=== PATIENT | female | born 1985 | race Caucasian/White ===

== ENCOUNTER 2017-12-03 00:54 | Inpatient (IN) | payer BC, OTHER ==
[~2017-12-03] VITALS: Ht 165.1 cm; Wt 57.6 kg
[2017-12-03 01:50] VITALS: BP 138/81
--- NOTE | 2017-12-03 01:50 | NUR ---
INTAKE ASSESSMENT BP: 138/81, HR: 112, RR: 16, SpO2: 96%, T:98.0 Pt is in stable condition and is able to be admitted on the unit. Pt is intoxicated from recent Opiate, Benzo and Crack cocaine use. Pt reports she last used 2 hours prior. Unit protocols regarding medications and vitals signs every 4 hours were explained. Pt verbalized understanding. Will continue admission upon arrival on the unit.
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
[2017-12-03 03:20] LABS: *URINE HCG, QUAL NEGATIVE (NEGATIVE)
[2017-12-03 03:23] LABS: *AMPHETAMINE, URINE POSITIVE (NEGATIVE); *BARBITURATE, URINE NEGATIVE (NEGATIVE); *CANNABINOID, URINE POSITIVE (NEGATIVE); *COCCAINE, URINE POSITIVE (NEGATIVE); *OPIATE, URINE POSITIVE (NEGATIVE); *PHENCYCLIDINE SCREEN,URINE NEGATIVE (NEGATIVE)
[2017-12-03] MEDS ORDERED: MIRALAX 17 GM POWD.PACK PO PRN (03:30)
[2017-12-03] MEDS ORDERED: DICYCLOMINE HCL 20 MG TABLET PO PRN (03:30)
[2017-12-03] MEDS ORDERED: ONDANSETRON 4 MG/2 ML VIAL IM PRN (03:30)
[2017-12-03] MEDS ORDERED: diphenhydrAMINE 50 MG CAPSULE PO PRN (03:30)
[2017-12-03] MEDS ORDERED: ACETAMINOPHEN 325 MG TABLET PO PRN (03:30)
[2017-12-03] MEDS ORDERED: THIAMINE HCL 200 MG/2 ML VIAL IM ONE (03:30)
[2017-12-03] MEDS ORDERED: CLONIDINE HCL 0.1 MG TABLET PO PRN (03:30)
[2017-12-03] MEDS ORDERED: HYDROXYZINE PAMOATE 25 MG CAPSULE PO PRN (03:30)
[2017-12-03] MEDS ORDERED: MAGNESIUM HYDROXIDE 30 ML LIQUID UDC PO PRN (03:30)
[2017-12-03] MEDS ORDERED: MAG HYDROX/AL HYDROX/SIMETH 30 ML LIQUID UDC PO PRN (03:30)
[2017-12-03] MEDS ORDERED: BUPRENORPHINE HCL 2 MG TAB.SUBL SL PRN (03:30)
[2017-12-03] MEDS ORDERED: LOPERAMIDE HCL 2 MG CAPSULE PO PRN ×2 (03:30)
[2017-12-03] MEDS ORDERED: IBUPROFEN 400 MG TABLET PO PRN (03:30)
[2017-12-03] MEDS ORDERED: ONDANSETRON ODT 4 MG TAB.RAPDIS SL PRN (03:30)
[2017-12-03] MEDS ORDERED: LORAZEPAM 2 MG/1 ML VIAL IM PRN (03:30)
[2017-12-03] MEDS: METHOCARBAMOL 750 MG TABLET PO PRN ×2 (03:44→20:31)
[2017-12-03] MEDS: LORAZEPAM 1 MG TABLET PO PRN ×3 (03:45→17:53)
--- NOTE | 2017-12-03 03:45 | NUR ---
PRN ATIVAN/ROBAXIN Pt complains of anxiety, agitation, restlessness and body aches. Pt noted to be hyperverbal, fidgety and unable to sit still. PRN Ativan and Robaxin administered as ordered. Safety measures in place. Will monitor effectiveness.
[2017-12-03 04:04] VITALS: BP 120/71
--- NOTE | 2017-12-03 04:45 | NUR ---
PRN REASSESSMENT PRN medication effective. Pt lying in bed with eyes closed noted to be asleep. Breathing even and unlabored. Safety measures in place. Will monitor.
[2017-12-03] MEDS ORDERED: QUET300T2 PO (05:13)
--- NOTE | 2017-12-03 05:44 | NUR ---
PRN CLONIDINE/VISTARIL Pt complains of anxiety, diaphoresis, and agitation. PRN Clonidine and Vistaril administered as ordered. Safety measures in place. Will monitor effectiveness.
--- NOTE | 2017-12-03 06:20 | NUR ---
PRN ATIVAN Pt complains of restlessness, anxiety, agitation, chills and sweats. Pt noted with dark circles around eyes, and pressured speech. CIWA: 10. PRN Ativan administered as ordered. Will endorse to monitor effectiveness.
--- NOTE | 2017-12-03 06:44 | NUR ---
PRN REASSESSMENT PRN medication effective. Pt lying bed with eyes closed, noted to be asleep. Breathing even and unlabored, safety measures in place. Will endorse.
--- NOTE | 2017-12-03 07:18 | NUR ---
END OF SHIFT Pt is a 32 year old female. Pt remains alert and oriented x4. She complained of anxiety, agitation, restlessness, diaphoresis and body aches. She received PRN Ativan 1 mg x2, Clonidine, and Vistaril. She slept 2 hrs, Intake:500mL, Void:x1, BM:0, COWS: 11, CIWA:10. Breathing is even and unlabored. Safety measures in place. Will endorse to AM shift.
--- NOTE | 2017-12-03 07:20 | NUR ---
PRN ATIVAN REASSESSMENT PRN medication effective. Pt lying in bed with eyes closed and is asleep. Breathing even and unlabored. Safety measures in place.
--- NOTE | 2017-12-03 07:30 | NUR ---
START OF SHIFT Pt is a 32 yr old female admitted on 12/03/17 at 0200 for Opiate/benzo withdrawal. Pt is currently on PRN Subutex and Ativan for s/s of w/d. Received report from security shift supervisor nurse. Pt received Ativan PRN x2, Robaxin PRN, Clonidine PRN and Vistaril PRN for s/s of w/d. Medication was effective. Last COWS score was 9 and CIWA score was 5 at 0544. Pt slept for 2 hrs and remains in bed sleeping at this time with respirations even and unlabored. Pt is on fall and seizure precautions. Side rails are up x2 and padded. Skin is intact, warm and moist to touch. Call light is within reach. Will continue to monitor.
[2017-12-03 08:00] VITALS: BP 90/51
--- NOTE | 2017-12-03 08:00 | NUR ---
COWS AND CIWA SCORE DIFFERED Pt is currently in bed sleeping with respirations even and unlabored. Safety precautions observed. Call light is within reach. Addendum: 12/03/17 at 1104 by JAZMYN JAMES LVN Amended: Links added. Addendum: 12/03/17 at 1125 by JAZMYN JAMES LVN error in documentation Misspelled word - COWS and CIWA score is Deferred.
[2017-12-03] MEDS ORDERED: MULTIVITAMINS,THERAPEUTIC TABLET PO SCH (09:00)
[2017-12-03] MEDS ORDERED: THIAMINE HCL 100 MG TABLET PO SCH (09:00)
[2017-12-03] MEDS ORDERED: FOLIC ACID 1 MG TABLET PO SCH (09:00)
[2017-12-03] MEDS ORDERED: IBUPROFEN 600 MG TABLET PO PRN (11:15)
[2017-12-03 12:00] VITALS: BP 90/58
--- NOTE | 2017-12-03 12:00 | NUR ---
COWS AND CIWA SCORE IS DEFERRED Pt remains in bed sleeping with respirations even and unlabored. Safety precaution observed. Will continue to monitor.
[2017-12-03 17:38] VITALS: BP 153/98
--- NOTE | 2017-12-03 17:56 | NUR ---
PRN GIVEN Pt was c/o of "not feeling well". Pt is observed with anxiety, agitation, restless legs, facial sweats and enlarged pupils. Fine tremors are felt on bilateral hands. Pt c/o nausea and abdominal cramping. VS BP 154/98, P 114. COWS score was 18 and CIWA score was 18. Subutex 4mg SL PRN and Ativan 2mg PO PRN was given as ordered for s/s of w/d. Dr. Sarabia was made aware.
--- NOTE | 2017-12-03 18:49 | NUR ---
PRN RE-ASSESSMENT Ativan 2mg PO PRN and Subutex 4mg SL was effective. Pt is currently in bed sleeping with respirations even and unlabored. Bed kept in low positions and locked with side rails up x2. Call light is within reach.
--- NOTE | 2017-12-03 19:00 | NUR ---
END OF SHIFT Pt is a 32 yr old female, admitted on 12/03/17 for opiate/benzo withdrawal and is to start on 5 day Subutex taper tonight. Pt has been observed with increase sedation and was in bed throughout the day. COWS and CIWA score was deferred at 0800 and 1200. Pt woke up prior to dinner c/o s/s of w/d and stating she feels like she was going to have a seizure. COWS score was 18 and CIWA score was 18 at 1736. Subutex 4mg SL PRN and Ativan 2mg PO PRN was given as ordered. Dr. Sarabia was made aware. Medication was effective and pt was noted sleeping in bed with respirations even and unlabored after receiving medications. Safety precautions observed. Pt refused to have blood drawn during the day. Report to manufacturing supervisor 2nd shift nurse to f/u.
--- NOTE | 2017-12-03 19:30 | NUR ---
START OF SHIFT Pt is a 32 y/ female admitted today for opiate, benzo, meth and cocaine withdrawal. Pt has PRN Ativan and Subutex available at this time. ECG done during day shift d/t persistent tachycardia, results came back normal. Per day shift nurse, last CIWA 18 and COWS 18 and PRN Ativan 2 mg and Subutex 4 mg administered. Upon assessment pt is laying in bed with eyes closed. Upon awakening pt presents with anxiety, tremors, agitation, fatigue, flat affect, body aches 10/10. Pts room is unkempt. Safety measures in place. Call light within reach. Medications due. Will continue to monitor.
[2017-12-03 20:00] VITALS: BP 80/46
[2017-12-03] MEDS: QUETIAPINE FUMARATE 200 MG TABLET PO SCH (20:31)
--- NOTE | 2017-12-03 20:31 | NUR ---
PRN ROBAXIN ADMINISTRATION Pt reports body aches /, presents with facial grimacing. Safety measures in place. Call light within reach. Will continue to monitor.
[2017-12-03] MEDS ORDERED: BUPRENORPHINE HCL 2 MG TAB.SUBL SL SCH (21:00)
[2017-12-03] MEDS ORDERED: LORAZEPAM 1 MG TABLET PO SCH (21:00)
--- NOTE | 2017-12-03 21:31 | NUR ---
PRN ROBAXIN REASSESSMENT AND SUBUTEX HELD Pt laying in bed with eyes closed, respirations even and unlabored, Robaxin noted effective. Subutex held d/t BP 80/46. Safety measures in place. Call light within reach. Will continue to monitor.
--- NOTE | 2017-12-04 | NUR ---
COWS/CIWA DEFERRED AND VITALS REFUSED Pt laying in bed with eyes closed, COWS/CIWA deferred, to be assessed when pt is awake per orders. Vitals refused. Respirations even and unlabored. Safety measures in place. Call light within reach. Will continue to monitor.
--- NOTE | 2017-12-04 07:03 | NUR ---
END OF SHIFT Pt is a 32 y/ female admitted today for opiate, benzo, meth and cocaine withdrawal. Pt presented with anxiety, tremors, agitation, fatigue, flat affect, body aches 07/22. Pts room was unkempt. Scheduled medications and PRN Robaxin administered, effective in S/S of withdrawal as verbalized by pt. Scheduled Subutex held d/t BP 80/46. Last COWS 8 and CIWA 10. Pt slept 11 hours. Intake 200 ml, void x 1, stool x 0. Safety measures in place. Call light within reach. 1:1 sitter at bedside. Pts needs have been met. Endorsed to day shift nurse.
--- NOTE | 2017-12-04 07:30 | NUR ---
START OF SHIFT Pt is a 32 yr old female admitted on 12/03/17 for Opiate/benzo withdrawal and is on 5 day Subutex taper as ordered. Received report from shift engineer nurse. Pt received Robaxin PRN for pain. Medication was effective. Subutex 4mg was held at 2100 due to low BP. Last COWS score was 8 and CIWA score was 10 at 2000. Pt slept for 11 hrs and remains in bed sleeping at this time with respirations even and unlabored. Skin is intact, warm and moist to touch. Pt is on fall and seizure precautions. Side rails are up x2 and padded. Call light is within reach. Will continue to monitor.
[2017-12-04 08:00] VITALS: BP 90/51
--- NOTE | 2017-12-04 08:00 | NUR ---
COWS AND CIWA DEFERRED Pt is currently in bed sleeping with respirations even and unlabored. COWS and CIWA score is deferred at this time. Will continue to monitor.
[2017-12-04] MEDS ORDERED: TUBERCULIN,PURIF.PROT.DERIV. 5 TU/0.1 ML TEST ID ONE ×2 (09:00)
[2017-12-04] MEDS: LORAZEPAM 1 MG TABLET PO PRN ×2 (09:56→19:21)
[2017-12-04] MEDS: BUPRENORPHINE HCL 2 MG TAB.SUBL SL SCH ×4 (09:56→21:36)
[2017-12-04 09:58] VITALS: BP 127/64
--- NOTE | 2017-12-04 09:59 | NUR ---
ATIVAN PRN GIVEN Pt c/o increase anxiety with agitation. Pt states of feeling nauseous and headache. Skin is intact, warm and moist to touch. VS are BP 127/64 and P 104. CIWA score was 9. Ativan 1mg PO PRN was given as ordered. Medication nery well. Dr. Sarabia is made aware.
--- NOTE | 2017-12-04 11:00 | NUR ---
PRN RE-ASSESSMENT Ativan 1mg PO PRN was mildly effective. Pt continues to state she does not feel well. Pt is observed nodding in and out and unable to keep her eyes open. Pt is noted with slurred speech and observed with increase drowsiness. CIWA score was 7. Safety precautions observed. Call light is within reach. Will continue to monitor.
[2017-12-04 12:00] VITALS: BP 101/69
[2017-12-04 12:56] LABS: BASOPHILS % (AUTO) 0.4 % (0.0-2.0); EOSINOPHILS # (AUTO) 0.1 K/uL (0.0-0.7); EOSINOPHILS % (AUTO) 0.8 % (0.0-7.0); HEMATOCRIT 38.7 % (31.2-41.9); HEMOGLOBIN 13.1 g/dL (10.9-14.3); LYMPHOCYTES # (AUTO) 1.7 K/uL (20.0-40.0); LYMPHOCYTES % (AUTO) 21.6 % (20.5-51.5); MEAN CORPUSCULAR HEMOGLOBIN 31.1 uug (24.7-32.8); MEAN CORPUSCULAR HGB CONC 34 g/dL (32.3-35.6); MEAN CORPUSCULAR VOLUME 92.3 fL (75.5-95.3); MONOCYTES # (AUTO) 0.7 K/uL (2.0-10.0); MONOCYTES % (AUTO) 9.5 % (0.0-11.0); NEUTROPHILS # (AUTO) 5.2 K/uL (1.8-8.9); NEUTROPHILS % (AUTO) 67.7 % (38.5-71.5); PLATELET COUNT (AUTO) 208 K/uL (179-408); WHITE BLOOD COUNT (AUTO) 7.7 K/uL (3.8-11.8)
[2017-12-04] MEDS: LORAZEPAM 1 MG TABLET PO SCH ×3 (13:16→21:35)
[2017-12-04 13:21] LABS: ALANINE AMINOTRANSFERASE 19 U/L (14-59); ALKALINE PHOSPHATASE 43 U/L (50-136); AMYLASE 36 U/L (25-115); ASPARTATE AMINOTRANSFERASE 19 U/L (15-37); BILIRUBIN,TOTAL 0.2 mg/dL (0.2-1.0); CARBON DIOXIDE 30 mmol/L (21-32); CHLORIDE 106 mmol/L (98-107); CREATININE 1.2 mg/dL (0.6-1.3); GLUCOSE 108 mg/dL (74-106); LIPASE 153 U/L (73-393); MAGNESIUM 1.8 mg/dL (1.8-2.4); POTASSIUM 3.4 mmol/L (3.5-5.1); TOTAL PROTEIN, SERUM 6.6 g/dL (6.4-8.2); UREA NITROGEN, BLOOD 15 mg/dL (7-18)
[2017-12-04 13:31] LABS: THYROID STIMULATING HORMONE 0.466 mIU/mL (0.358-3.740)
[2017-12-04 13:37] LABS: ETHANOL < 3 MG/DL (0-0)
[2017-12-04] MEDS ORDERED: POTASSIUM CHLORIDE 10 MEQ CAPSULE.SA PO ONE (15:15)
[2017-12-04 16:00] VITALS: BP 130/78
--- NOTE | 2017-12-04 17:50 | NUR ---
MEDICATION ADMINISTRATION Subutex 4mg SL as scheduled at 1500 was administered at this time, okay per Dr. Sarabia. Pt c/o increase anxiety and muscle aching. COWS score was 9. Medication was nery well.
--- NOTE | 2017-12-04 19:00 | NUR ---
END OF SHIFT Pt is a 32 yr old female, admitted on 12/03/17 for opiate/benzo withdrawal and is on 5 day Subutex taper and 4 day Ativan taper. Medication nery well. Pt has been observed with increase fatigue and remained in her room throughout the day. Pt received Ativan 1mg PO PRN at 0956 for CIWA score of 9. Medication was effective. Pt's potassium level was 3.4. Potassium was replaced. After dinner, pt was stating of wanting to leave AMA. Pt was spoken by staff and MD to continue with treatment and the risks and benefits of leaving AMA. Pt agreed to stay. Last CIWA score was 9 and COWS score was 9 at 1600. Safety precautions observed. Endorse to lens matcher nurse to continue to monitor.
--- NOTE | 2017-12-04 19:20 | NUR ---
START OF SHIFT Pt is a 32 y/ female admitted today for opiate, benzo, meth and cocaine withdrawal. Pt started a 5 day Subutex and 4 day Ativan taper today, tolerating well. Per day shift nurse, last CIWA 9 and COWS 9. Per report, pt verbalized feelings of wanting to leave AMA r/t cravings. Upon assessment pt is verbalizing persistent feelings of wanting to leave AMA and presents with anxiety, tremors, agitation, flat affect, body aches 4/10, sweats, dysphoria and anhedonia. MD made aware, encouraged relaxation techniques. Pts room is unkempt. Safety measures in place. Call light within reach. Medications due. Will continue to monitor.
--- NOTE | 2017-12-04 19:21 | NUR ---
PRN ATIVAN 2 MG ADMINISTRATION CIWA 18, pt presents with anxiety, agitation, irritability, tremors, sweats and is occasionally tearful. Pt verbalizes feelings of wanting to leave AMA. Relaxation techniques encouraged.
[2017-12-04 20:00] VITALS: BP 108/65
--- NOTE | 2017-12-04 20:20 | NUR ---
PRN ATIVAN 2 MG REASSESSMENT CIWA 18 lowered to CIWA 13. Pt still verbalizes feelings of wanting to leave AMA due to cravings, but appears less anxious and agitated. Relaxation techniques encouraged. Staff encouraged patient to stay. Safety measures in place. Will continue to monitor.
[2017-12-04] MEDS: GABAPENTIN 300 MG CAPSULE PO SCH (21:35)
[2017-12-04] MEDS: QUETIAPINE FUMARATE 200 MG TABLET PO SCH (21:35)
[2017-12-04] MEDS: METHOCARBAMOL 750 MG TABLET PO PRN (21:36)
--- NOTE | 2017-12-04 21:36 | NUR ---
PRN ROBAXIN ADMINISTRATION Pt reports body aches 6/10 and appears uncomfortable and irritable. Pt laying in bed. Safety measures in place. Call light within reach. Will continue to monitor.
--- NOTE | 2017-12-04 22:36 | NUR ---
KORINA FARMER REASSESSMENT Pt reports body aches improved to tolerable level. Safety measures in place. Call light within reach. Will continue to monitor.
[2017-12-04] MEDS: HYDROXYZINE PAMOATE 25 MG CAPSULE PO PRN (22:54)
--- NOTE | 2017-12-04 22:54 | NUR ---
PRN BENADRYL AND VISTARIL ADMINISTRATION Pt requests sleep aid and appears anxious. Safety measures in place. Call light within reach. Will continue to monitor.
--- NOTE | 2017-12-04 23:54 | NUR ---
PRN BENADRYL AND VISTARIL REASSESSMENT Pt laying in bed with eyes closed, medications noted effective. Respirations even and unlabored. Safety measures in place. Call light within reach. Will continue to monitor.
--- NOTE | 2017-12-05 | NUR ---
COWS/CIWA DEFERRED AND VITALS REFUSED Pt laying in bed with eyes closed, COWS/CIWA deferred, to be assessed when pt is awake per orders. Vitals refused. Safety measures in place. Call light within reach. Will continue to monitor.
--- NOTE | 2017-12-05 07:09 | NUR ---
END OF SHIFT Pt is a 32 y/ female admitted today for opiate, benzo, meth and cocaine withdrawal. Pt started a 5 day Subutex and 4 day Ativan taper today, tolerating well. Upon assessment pt was verbalizing persistent feelings of wanting to leave AMA r/t cravings and presents with anxiety, tremors, agitation, flat affect, body aches 4/10, sweats, dysphoria and anhedonia. MD made aware, encouraged relaxation techniques. Pts room is unkempt. Scheduled medications and PRN Ativan 2 mg, Robaxin, Benadryl and Vistaril administered, effective in S/S of withdrawal AEB COWS 13 CIWA 18 lowered to COWS 9 and CIWA 13 during shift. Pt slept 7 hours. Intake 796 ml, void x 1, stool x 0. Safety measures in place. Call light within reach. Pts needs have been met. Endorsed to day shift nurse.
--- NOTE | 2017-12-05 07:30 | NUR ---
START OF SHIFT Pt is a 32 yr old female admitted on 12/03/17 for Opiate/benzo withdrawal and is on 5 day Subutex taper and 4 day Ativan taper as ordered. Received report from mva operator nurse. Pt received Robaxin PRN, Benadryl PRN and Vistaril PRN during the night. Medication was effective. Pt slept for 7 hrs. Last COWS score was 9 and CIWA score was 13 at 1999. Pt is currently in bed sleeping with respirations even and unlabored. Skin is intact, warm and moist to touch. Pt's room is noted with a foul order. Pt is on fall and seizure precautions. Side rails are up x2 and padded. Call light is within reach. Will continue to monitor.
[2017-12-05 08:00] VITALS: BP 94/60
[2017-12-05 08:07] LABS: HEPATITIS B SURFACE AG Negative (Negative)
[2017-12-05] MEDS ORDERED: BUPRENORPHINE HCL 2 MG TAB.SUBL SL SCH ×2 (09:00→15:00)
[2017-12-05] MEDS: GABAPENTIN 300 MG CAPSULE PO SCH (10:06)
[2017-12-05] MEDS: LORAZEPAM 1 MG TABLET PO SCH ×2 (10:07→14:26)
[2017-12-05 12:00] VITALS: BP 110/72
[2017-12-05] MEDS: HYDROXYZINE PAMOATE 25 MG CAPSULE PO PRN (14:26)
--- NOTE | 2017-12-05 14:26 | NUR ---
PRN GIVEN Pt c/o increase anxiety. Vistaril 25mg PO PRN was given as ordered. Medication nery well. Will continue to monitor.
[2017-12-05] MEDS ORDERED: LORAZEPAM 1 MG TABLET PO SCH ×2 (15:00→21:00)
[2017-12-05 16:00] VITALS: BP 127/91
--- NOTE | 2017-12-05 17:40 | NUR ---
AMA Pt stated of wanting to leave against medical advice. Pt was spoken to by multiple staff members and MD to continue with care and the risk and benefits of leaving AMA. Pt was able to verbalize understanding but continues to be adamant on leaving. Pt is observed with anxiety and agitation. No SI/HI noted. Pt left the unit at 1740 in stable condition. Pt was given community resources.
[2017-12-05] MEDS ORDERED: GABAPENTIN 300 MG CAPSULE PO SCH (21:00)
[2017-12-05] MEDS ORDERED: CLONIDINE HCL 0.1 MG TABLET PO SCH (21:00)
[2017-12-06] MEDS ORDERED: BUPRENORPHINE HCL 2 MG TAB.SUBL SL SCH (09:00)
[2017-12-06] MEDS ORDERED: LORAZEPAM 1 MG TABLET PO SCH ×2 (09:00)
[2017-12-07] MEDS ORDERED: LORAZEPAM 1 MG TABLET PO SCH (09:00)
[2017-12-07] MEDS ORDERED: BUPRENORPHINE HCL 2 MG TAB.SUBL SL SCH (09:00)
== END 2017-12-05 17:40 | disposition left against medical advice (07) | DRG 894 ==
LOC: SRC 00:54
PROVIDERS: ADMIT Internal Medicine; ATTEND Internal Medicine
PROC: HZ2ZZZZ Detoxification Services for Substance Abuse Treatment (ICD-10-PCS; principal; 2017-12-03)
PROC: HZ41ZZZ Group Counseling for Substance Abuse Treatment, Behavioral (ICD-10-PCS; principal; 2017-12-03)
DX: F11.23 Opioid dependence with withdrawal (principal); Z86.74 Personal history of sudden cardiac arrest; I15.9 Secondary hypertension, unspecified; F14.20 Cocaine dependence, uncomplicated; I47.1 Supraventricular tachycardia; F17.210 Nicotine dependence, cigarettes, uncomplicated; F43.10 Post-traumatic stress disorder, unspecified; F13.239 Sedative, hypnotic or anxiolytic dependence with withdrawal, unspecified; Z59.0 Homelessness; Z91.030 Bee allergy status; Z91.89 Other specified personal risk factors, not elsewhere classified; E87.6 Hypokalemia; F12.10 Cannabis abuse, uncomplicated; F15.10 Other stimulant abuse, uncomplicated; K29.70 Gastritis, unspecified, without bleeding; Z59.1 Inadequate housing; Z91.11 Patient's noncompliance with dietary regimen; F39 Unspecified mood [affective] disorder; Z79.899 Other long term (current) drug therapy
CPT/HCPCS: 36415; 80307; 80324; 80346; 80349; 80353; 80361; 83690; 83735; 84443; 84703; 85025; 86580; 86592; 86705; 86803; 87340; 87806; 93005; G0480; Q0163

== ENCOUNTER 2017-12-11 12:51 | Inpatient (IN) | payer BC, OTHER ==
[~2017-12-11] VITALS: Ht 165.1 cm; Wt 59.0 kg
[2017-12-11 20:00] VITALS: BP 102/68
[2017-12-11] MEDS ORDERED: MAG HYDROX/AL HYDROX/SIMETH 30 ML LIQUID UDC PO PRN (21:15)
[2017-12-11] MEDS ORDERED: ONDANSETRON ODT 4 MG TAB.RAPDIS SL PRN (21:15)
[2017-12-11] MEDS ORDERED: ONDANSETRON 4 MG/2 ML VIAL IM PRN (21:15)
[2017-12-11] MEDS ORDERED: DICYCLOMINE HCL 20 MG TABLET PO PRN (21:15)
[2017-12-11] MEDS ORDERED: MAGNESIUM HYDROXIDE 30 ML LIQUID UDC PO PRN (21:15)
[2017-12-11] MEDS ORDERED: CLONIDINE HCL 0.1 MG TABLET PO PRN (21:15)
[2017-12-11] MEDS ORDERED: LOPERAMIDE HCL 2 MG CAPSULE PO PRN ×2 (21:15)
[2017-12-11] MEDS ORDERED: MIRALAX 17 GM POWD.PACK PO PRN (21:15)
[2017-12-11] MEDS ORDERED: ACETAMINOPHEN 325 MG TABLET PO PRN (21:15)
[2017-12-11 21:23] LABS: *URINE HCG, QUAL NEGATIVE (NEGATIVE)
[2017-12-11] MEDS ORDERED: LORAZEPAM 2 MG/1 ML VIAL IM PRN (21:30)
[2017-12-11] MEDS ORDERED: LORAZEPAM 1 MG TABLET PO PRN (21:30)
[2017-12-11 21:35] LABS: *AMPHETAMINE, URINE POSITIVE (NEGATIVE); *BARBITURATE, URINE NEGATIVE (NEGATIVE); *CANNABINOID, URINE NEGATIVE (NEGATIVE); *COCCAINE, URINE POSITIVE (NEGATIVE); *OPIATE, URINE POSITIVE (NEGATIVE); *PHENCYCLIDINE SCREEN,URINE NEGATIVE (NEGATIVE)
[2017-12-11] MEDS ORDERED: VANCOMYCIN IV 200 ML ONE (22:16)
--- NOTE | 2017-12-11 22:30 | NUR ---
ADMISSION NOTE Patient is a 32-year-old female admitted on 12/11/17 for opiate (heroin) and benzo (xanax) withdrawal, with concurrent use of crack cocaine and meth. Patient arrived on the unit at 1950 from ER. Skin check and body/contraband check were conducted. Patient noted with an abscess on her left ankle. Patient is scheduled to start IV antibiotics, pending orders and placement of PICC. Patient's skin is warm to touch and intact. Patient has provided urine for UA. Patient is alert and oriented x3, but sleepy and tired. Patient is anxious and agitated, legs are restless, complaining of pain 10/10 R/T abscess at left ankle. Patient's lung sounds are clear bilaterally upon ausculation, bowel sounds hypoactive x4 quadrants, last menstrual period reported at 11/26/17. Patient is ambulatory with steady gait. Patient denies SI and HI at this time. Patient reports that she has a history of seizure related to overdose; last seizure reported as "a couple days ago." Patient is FULL code status, on regular diet, with only known allergy to bee venom. Substance abuse history: 1. Heroin (smoke/IV) daily for the past 7 days, 1 gram daily. Last intake was 12/10/17 about 0.5 gram. Patient has been using heroin for 18 years. 2. Crack cocaine, "8 ball" daily for 7 days (approx. 3.5 grams daily). Last intake on 12/10/17 of unknown amount. Patient has used crack cocaine for 4 years. 3. Xanax 3 bars daily for 5 days. Last intake was 12/08/17, unknown amount. 4. Meth - intermittent use for a week, unspecified daily amount, last intake unknown, unspecified amount. Patient states that she feels chills and sweats with increasing anxiety and agitation. Patient's skin is diaphoretic and patient is noted with fine tremors. Patient was at [facility] on 12/03/17 but left AMA. Prior to last admission, patient was at [place] in [facility], October of 2017. She was at [facility] in September 2017 for 7 days, stating that it was her longest period of sobriety. Patient denies family history of substance abuse. At time of admission, COWS of 9 and CIWA of 9. Awaiting orders for tapers. Safety measures in place, side rails up x2 padded, bed locked in lowest position, call light within reach. Will continue to monitor.
[2017-12-11] MEDS ORDERED: VANCOMYCIN IV 1 G in PREMIXED 0 EACH IV ONE (23:00)
--- NOTE | 2017-12-11 23:00 | NUR ---
Nursing Note Picc Line in right upper arm, intact and patent . Pt started on Vancomycin 1g IV x1 for Cellulitis. Vancomycin level to be drawn in AM. Safety measures in place, will continue to monitor.
[2017-12-11] MEDS: METHOCARBAMOL 750 MG TABLET PO PRN (23:54)
[2017-12-11] MEDS: IBUPROFEN 600 MG TABLET PO PRN (23:54)
--- NOTE | 2017-12-11 23:54 | NUR ---
PRN MOTRIN AND ROBAXIN Patient reports 10/10 pain, burning and stinging at abscess site, LEFT ankle. PRN Motrin and Robaxin given PO. Safety measures in place, call light within reach. Will reassess for effectiveness.
[2017-12-12] VITALS: BP 121/79
[2017-12-12] MEDS: LORAZEPAM 1 MG TABLET PO PRN ×3 (00:22→13:04)
[2017-12-12] MEDS: BUPRENORPHINE HCL 2 MG TAB.SUBL SL PRN ×3 (00:23→20:28)
[2017-12-12] MEDS: diphenhydrAMINE 50 MG CAPSULE PO PRN ×2 (00:23→23:43)
--- NOTE | 2017-12-12 00:23 | NUR ---
PRN SUBUTEX, ATIVAN, & BENADRYL Patient currently has COWS of 15 and CIWA of 12. PRN Subutex 4mg given SL and PRN Ativan 1mg given PO. Patient reports extreme difficulty sleeping as requests aid. PRN Benadryl 50mg given PO. Safety measures in place, call light within reach. Will reassess for effectiveness.
--- NOTE | 2017-12-12 00:53 | NUR ---
PRN SUBUTEX REASSESSMENT Patient is in bed with eyes closed, asleep. Unable to score COWS at this time. Respirations are even and unlabored. Safety measures in place, call light within reach. Will continue to monitor.
--- NOTE | 2017-12-12 00:54 | NUR ---
PRN MOTRIN AND ROBAXIN REASSESSMENT Patient is in bed with eyes closed, sleeping. Unable to reassess PRN effectiveness at this time. Respirations are even and unlabored. Safety measures in place, side rails up and padded x2, bed locked in low position, call light within reach. Will continue to monitor.
--- NOTE | 2017-12-12 01:23 | NUR ---
PRN ATIVAN AND BENADRYL REASSESSMENT Patient is resting in bed with eyes closed, asleep; PRN Benadryl effective. Unable to assess and score CIWA at this time. Respirations are even and unlabored. Safety measures in place, call light within reach. Will continue to monitor.
[2017-12-12 04:00] VITALS: BP 106/69
--- NOTE | 2017-12-12 04:00 | NUR ---
COWS & CIWA DEFERRED COWS and CIWA deferred due to patient sleeping; to be assessed and scored while patient is awake. Respirations even and unlabored, 14/min. Safety measures in place, call light within reach. Will continue to monitor.
--- NOTE | 2017-12-12 07:20 | NUR ---
END OF SHIFT Patient is a 32-year-old female admitted on 12/11/17 for opiate (heroin) and benzo (xanax) withdrawal, with concurrent use of crack cocaine and meth. Patient's last COWS was 15, last CIWA 12. Patient has PICC in her right upper arm, patent. Patient received PRN Motrin, Robaxin, Subutex, Ativan and Benadryl during the shift. Patient slept for 6 hours, total intake of 798 mL, void x2, stool x0. Safety measures in place, side rails up x2, bed locked in lowest position, call light within reach. Will endorse to day shift.
--- NOTE | 2017-12-12 07:30 | NUR ---
START OF SHIFT Pt 32 y/o female admitted for opiate / xanax withdrawal. Pt received in room on bed with eyes closed resting but easily arousable to name. Pt alert and oriented to name, place, and time. Perrla. Skin warm and moist to touch. Respirations even and unlabored. Pt with c/o chills and sweats. Bilateral hand tremors noted. Pt with picc line on right arm, intact and in place, patent with no redness noted on sight, and is saline locked. Pt appears disheveled and unkempt. Encouraged to maintain hygiene. It was reported that pt slept for 6 hours last night. Pt is on prn subutex and prn ativan. Bed on lowest position with side rails x2 up for safety. Call light within reach.
[2017-12-12 07:39] LABS: BASOPHILS % (AUTO) 0.5 % (0.0-2.0); EOSINOPHILS # (AUTO) 0.1 K/uL (0.0-0.7); EOSINOPHILS % (AUTO) 1.1 % (0.0-7.0); HEMATOCRIT 37.2 % (31.2-41.9); HEMOGLOBIN 12.5 g/dL (10.9-14.3); LYMPHOCYTES # (AUTO) 2.9 K/uL (20.0-40.0); LYMPHOCYTES % (AUTO) 33.7 % (20.5-51.5); MEAN CORPUSCULAR HEMOGLOBIN 30.7 uug (24.7-32.8); MEAN CORPUSCULAR HGB CONC 34 g/dL (32.3-35.6); MEAN CORPUSCULAR VOLUME 91.5 fL (75.5-95.3); MONOCYTES # (AUTO) 0.6 K/uL (2.0-10.0); MONOCYTES % (AUTO) 7.4 % (0.0-11.0); NEUTROPHILS # (AUTO) 4.9 K/uL (1.8-8.9); NEUTROPHILS % (AUTO) 57.3 % (38.5-71.5); PLATELET COUNT (AUTO) 238 K/uL (179-408); RED BLOOD CELL COUNT(AUTO) 4.07 MIL/uL (3.63-4.92); WHITE BLOOD COUNT (AUTO) 8.6 K/uL (3.8-11.8)
[2017-12-12 07:49] LABS: ETHANOL < 3 MG/DL (0-0)
[2017-12-12 07:54] LABS: ALKALINE PHOSPHATASE 32 U/L (50-136); AMYLASE 31 U/L (25-115); ASPARTATE AMINOTRANSFERASE 11 U/L (15-37); BILIRUBIN,TOTAL 0.3 mg/dL (0.2-1.0); CARBON DIOXIDE 23 mmol/L (21-32); CHLORIDE 111 mmol/L (98-107); CREATININE 0.7 mg/dL (0.6-1.3); GLUCOSE 88 mg/dL (74-106); LIPASE 84 U/L (73-393); MAGNESIUM 1.6 mg/dL (1.8-2.4); TOTAL PROTEIN, SERUM 5.1 g/dL (6.4-8.2); UREA NITROGEN, BLOOD 8 mg/dL (7-18)
[2017-12-12 08:00] VITALS: BP 107/68
[2017-12-12 08:03] LABS: THYROID STIMULATING HORMONE 0.395 mIU/mL (0.358-3.740)
[2017-12-12 08:08] LABS: ALANINE AMINOTRANSFERASE 9 U/L (14-59)
[2017-12-12 08:10] LABS: POTASSIUM 2.8 mmol/L (3.5-5.1)
--- NOTE | 2017-12-12 08:11 | NUR ---
LABS Lab results K+ = 2.8 reported from Ricky Elkins. Notified Dr. Christopher. Awaiting call back.
[2017-12-12] MEDS ORDERED: POTASSIUM CHLORIDE 20 MEQ TAB.PRT.SR PO ONE ×3 (08:45→12:00)
[2017-12-12] MEDS ORDERED: TUBERCULIN,PURIF.PROT.DERIV. 5 TU/0.1 ML TEST ID ONE (09:00)
[2017-12-12] MEDS: MULTIVITAMINS,THERAPEUTIC TABLET PO SCH (09:10)
--- NOTE | 2017-12-12 09:15 | NUR ---
NSG ENTRY Pt resistive to allowing care for picc line on right arm stating, " It's too early to be doing that!", when attempting to flush picc line with NS. After alot of prompting and education, pt allowed for picc line on right arm to be flushed and check for patency.
--- NOTE | 2017-12-12 09:28 | NUR ---
PRN Pt with cows=14. Pt with c/o chills/ sweats, skin crawling, body aches, and anxiety. Subtutex sl prn per MD order given and tolerated well.
--- NOTE | 2017-12-12 09:28 | NUR ---
PRN Pt states feels anxious and is irritable. Ciwa 7. Ativan 1mg po prn per MD order given and tolerated well.
--- NOTE | 2017-12-12 10:28 | NUR ---
PRN EVAL Pt with ciwa=4.
--- NOTE | 2017-12-12 10:28 | NUR ---
PRN EVAL pt with cows=7.
[2017-12-12] MEDS ORDERED: MAGNESIUM OXIDE 400 MG TABLET PO ONE (10:45)
--- NOTE | 2017-12-12 11:06 | NUR ---
Clinical Pharmacy Note: Vancomycin Pharmacy to Dose Subjective: To start vancomycin in this 32 y/o female for indication of cellulitis Objective: height 165 cm wegith 58 kg BUN 8 Scr 0.7 Wbc 8.6 temp 98.6 1gm vancomycin given 12/11 @ 2300 Assessment/Plan Will start regimen of vanco 1gm q12hr for estimated trough of 13.7, second dose today at 1100. Ordered trough before 4th scheduled dose (due tomorrow at 1030). Will check level tomorrow am and adjust as needed. Will follow renal function as well and change if were to appear unstable. Will continue to monitor
[2017-12-12] MEDS: VANCOMYCIN IV 1 G in PREMIXED 0 EACH IV SCH ×2 (11:07→23:43)
[2017-12-12 12:00] VITALS: BP 131/77
[2017-12-12] MEDS: IBUPROFEN 600 MG TABLET PO PRN ×2 (13:04→20:28)
[2017-12-12] MEDS: METHOCARBAMOL 750 MG TABLET PO PRN ×2 (13:04→23:43)
--- NOTE | 2017-12-12 13:07 | NUR ---
PRN Pt with ciwa=6. Pt irritable and anxious. Ativan 1 mg po prn per MD order given and tolerated well.
--- NOTE | 2017-12-12 13:08 | NUR ---
PRN Pt states has pain of left foot aching 7/10. Motrin po prn per MD order given and tolerated well.
--- NOTE | 2017-12-12 13:08 | NUR ---
KORINA GARDUNO Pt observed in room on bed with eyes closed resting but easily arousable to name. Addendum: 12/12/17 at 1710 by STEVEN NDIAYE RN incorrect time correct time [id number]
--- NOTE | 2017-12-12 13:09 | NUR ---
PRN Pt states has generalized body aches 6/10. Robaxin po prn per MD order given and tolerated well.
--- NOTE | 2017-12-12 13:09 | NUR ---
PRN Pt states has pain of left foot aching 7/10. motrin po prn per MD order given and tolerated well.
--- NOTE | 2017-12-12 14:07 | NUR ---
PRN EVAL pt with ciwa=4.
--- NOTE | 2017-12-12 14:09 | NUR ---
PRN SHAAN Pt observed in room on bed with eyes closed resting but easily arousable to name.
[2017-12-12] MEDS: GABAPENTIN 300 MG CAPSULE PO SCH ×2 (14:28→20:28)
[2017-12-12] MEDS: LORAZEPAM 1 MG TABLET PO SCH ×3 (14:28→20:27)
[2017-12-12 16:00] VITALS: BP 91/62
--- NOTE | 2017-12-12 18:44 | NUR ---
END OF SHIFT Pt 32 y/o female admitted for opiate / xanax withdrawal. Pt alert and oriented to name, place, and time. Perrla. Skin warm and moist to touch. Respirations even and unlabored. Pt with c/o chills and sweats throughout the morning. Bilateral hand tremors noted. Pt with picc line on right arm, intact and in place, patent with no redness noted on sight, and is saline locked. Pt appears disheveled and unkempt. Encouraged to maintain hygiene. Pt observed isolative to room throughout the day. Pt did not attend group activity. Pt is on a 5 day ativan taper and is on day 1. Cows=14@0800, 7=0737, and 1=2146. Ciwas=7@0800, 5@1200, and 6@1600.Pt was seen by MD today. Pt medication compliant and tolerated well. No ASE noted. Bed on lowest position with side rails x2 up for safety. Call light within reach.
[2017-12-12 20:00] VITALS: BP 109/65
--- NOTE | 2017-12-12 20:00 | NUR ---
Start of Shift Pt lying on bed, AAOx4 and noted to be anxious and distraught. Pt is emotional and easliy gets agitated. Pt is teary-eyed and c/o increasing generalized body aches and easy fatigability. Pt observed to have dark under eye circles and is disheveled. Pt noted to be isolative and is melancholic. With PICC line on the right upper arm, with 1 lumen, patent and intact, for Vanco antibiotic administration for abscess of left foot. Fall, universal, seizure and safety prec in place. Call light within reach. COWS-14, CIWA-12. Will continue to monitor.
--- NOTE | 2017-12-12 20:26 | NUR ---
RN note PRN Subutex Pt c/o generalized body pain=5/10, increasing anxiety, is noted to be emotional and teary-eyed. COWS=14. Administered Subutex 4 mg SL PRN as ordered. Will reassess.
[2017-12-12] MEDS: LACTOBACILLUS RHAMNOSUS GG 1 EACH CAPSULE PO SCH (20:27)
--- NOTE | 2017-12-12 20:32 | NUR ---
RN note PRN Motrin Pt c/o generalized body aches=5/10. Administered Motrin 500 mg PO PRN as ordered. Will reassess.
--- NOTE | 2017-12-12 21:30 | NUR ---
RN note reassess Pt verbalized feeling better with decreasing anxiety level, pain level=3/10. COWS=10.
--- NOTE | 2017-12-12 23:43 | NUR ---
RN note PRN Benadryl and Robaxin Pt c/o inability to sleep and c/o generalized muscle pain=6/10. Administered Benadryl 50 mg PO PRN and Robaxin 750 mg PO PRN as ordered. Will reassess.
[2017-12-13] VITALS: BP 105/64
--- NOTE | 2017-12-13 00:45 | NUR ---
RN note reassess Pt asleep on bed, with no facial grimacing nor SOB noted.
[2017-12-13 04:00] VITALS: BP 112/66
--- NOTE | 2017-12-13 07:20 | NUR ---
START OF SHIFT PATIENT IS A 32 YR OLD ADMITTED TO [facility] ON 12/11/17 FOR WITHDRAWAL FROM OPIATES AND BENZODIAZEPINES. SHE IS ON AN ATIVAN TAPER TOLERATING WELL. PRN MEDS GIVEN ON PM SHIFT : MOTRIN, SUBUTEX, BENADRYL AND ROBAXIN. PATIENT SLEPT FOR 5 HOURS AND LAST CIWA 7 AND COWS 7. PATIENT IS ASLEEP IN BED AT THIS TIME, BREATHING EVEN AND UNLABORED, PICC LINE IN RIGHT UPPER ARM FOR IV ANTIBIOTICS AND PER ENDORSEMENT FROM NIGHT RN ONLY 1 LUMEN IS PATENT. PATIENT HAS A LEFT FOOT ABSCESS WHICH IS BEING TREATED WITH IV VANCOMYCIN. WILL CONTINUE TO FOLLOW MD PLAN OF CARE.
--- NOTE | 2017-12-13 07:25 | NUR ---
End of Shift Pt asleep on bed but arousable, continues to be anxious and distraught. Pt is emotional and easliy gets agitated. Pt continue to complain of increasing generalized body aches and easy fatigability. Pt observed to have dark under eye circles, disheveled and noted to be too focused on getting medications. Pt noted to be isolative and is melancholic. With PICC line on the right upper arm, with 1 lumen, patent and intact, for Vanco antibiotic administration for abscess of left foot. Fall, universal, seizure and safety prec in place. Call light within reach. COWS-7, CIWA-7, slept for 5 hours. Endorsed to AM shift nurse for continuity of care.
[2017-12-13 08:00] VITALS: BP 96/53
[2017-12-13] MEDS: MULTIVITAMINS,THERAPEUTIC TABLET PO SCH (09:29)
[2017-12-13] MEDS: LACTOBACILLUS RHAMNOSUS GG 1 EACH CAPSULE PO SCH ×2 (09:29→21:11)
[2017-12-13] MEDS: LORAZEPAM 1 MG TABLET PO SCH ×3 (09:29→21:11)
[2017-12-13] MEDS: GABAPENTIN 300 MG CAPSULE PO SCH ×3 (09:29→21:11)
--- NOTE | 2017-12-13 10:41 | NUR ---
Client prompted client to come to all groups/activities today to engage with others and not be isolated in his room. Therapist encouraged client to try to share his feeling/thoughts so he does not build up feelings/thoughts which may negatively impact him. Therapist encouraged client to also meet with therapist if they feel they cannot cope with going to group so they can have one/one therapy session to help process feelings/thoughts.
[2017-12-13] MEDS ORDERED: IV NORMAL SALINE 500 ML IV ONE (11:15)
--- NOTE | 2017-12-13 11:16 | NUR ---
Clinical Pharmacy Note: Vancomycin Pharmacy to Dose Subjective: To continue vancomycin in this 32 y/o female for indication of cellulitis Objective: height 165 cm wegith 58 kg BUN 8 (3/2) Scr 0.7 (3/2) Wbc 8.6 (3/2) temp 97.8 Assessment/Plan Vanco trough due this am at 1030, however, per RN, patient very dehydrated & lab could not be drawn. Will continue same regimen of vanco 1gm IV q12hr for now & reschedule vanco trough before next dose (due tonight at 2230- RN has been informed to hold 2300 dose if vanco level is above 20 mcg/ml). Will check level tomorrow am and adjust as needed. Will follow renal function as well and change if were to appear unstable. Will continue to monitor
[2017-12-13 12:00] VITALS: BP 135/66
[2017-12-13] MEDS: VANCOMYCIN IV 1 G in PREMIXED 0 EACH IV SCH ×2 (12:43→23:38)
[2017-12-13] MEDS ORDERED: KETOROLAC TROMETHAMINE 15 MG INJ IVP PRN (13:45)
[2017-12-13] MEDS ORDERED: KETOROLAC TROMETHAMINE 30 MG INJ IVP PRN (13:45)
[2017-12-13] MEDS: BUPRENORPHINE HCL 2 MG TAB.SUBL SL SCH ×3 (15:22→21:11)
[2017-12-13 16:00] VITALS: BP 84/60
[2017-12-13 16:09] LABS: HEPATITIS B SURFACE AG Negative (Negative)
--- NOTE | 2017-12-13 17:19 | NUR ---
Client was prompted by therapist to attend group therapy sessions. Client agreed to attend if she was feeling better.
[2017-12-13] MEDS: IV NS 1000 ML 1,000 ML IV SCH ×2 (17:26→23:38)
--- NOTE | 2017-12-13 18:30 | NUR ---
END OF SHIFT PATIENT IS A 32 YR OLD ADMITTED TO [facility] ON 12/11/17 FOR WITHDRAWAL FROM OPIATES AND BENZODIAZEPINES. SHE IS ON AN ATIVAN TAPER TOLERATING WELL. SUBUTEX TAPER INITIATED THIS AFTERNOON AND TOLERATING WELL.NO PRN MEDS GIVEN ON THIS SHIFT. PICC LINE IN RIGHT UPPER ARM FOR IV ANTIBIOTICS IS PATENT. BOLUS OF 500CC D51/2 NS GIVEN AND 1000CC NORMAL SALINE RUNNING NOW. PATIENT HAS A LEFT FOOT ABSCESS WHICH IS BEING TREATED WITH IV VANCOMYCIN. PATIENT HAS BEEN VERY LABILE TODAY, MOOD SWINGS, CRYING AND GENERALLY ISOLATING HERSELF. FLUID PO INTAKE THIS SHIFT 1250 ML, 3 VOIDS AND 0 BM. LAST COWS 10 AND CIWA 10 @ 1600. WILL CONTINUE TO FOLLOW MD PLAN OF CARE.
--- NOTE | 2017-12-13 19:30 | NUR ---
START OF SHIFT NOTE : Patient is a 32-year-old female admitted on 12/11/17 for medically supervised withdrawal from opiate (heroin) and benzo (xanax), with concurrent use of crack cocaine and meth. Pt. placed on 5 day Ativan taper. No PRNs given during day shift. Pt. is walking on the floor, tearful, restless, agitated , CIWA=10, COWS=10 at 19:30. She complains of tremor time to time, difficulty falling and staying asleep, increased level of anxiety, flashes time to time. Educated patient regarding the importance of compliance to treatment and medication regime, patient verbalized understanding. Encouraged patient to participate in group therapies and verbalize feelings. Instructed patient to maintain adequate fluid and nutritional intake. NS IV drip at 125 ml/h via PICC line. Safety measures in place : bed on lowest position with side rails x2 up for safety, all light within reach. Will continue to monitor closely and offer help.
[2017-12-13 20:00] VITALS: BP 111/68
[2017-12-13] MEDS ORDERED: FAMOTIDINE. 20 MG/2 ML VIAL IV SCH (21:00)
--- NOTE | 2017-12-13 23:00 | NUR ---
PRN BENADRYL Pt. complains of difficulty falling asleep, insomnia. PRN BENADRYL given as ordered. Safety measures in place : bed on lowest position with side rails x2 up for safety, call light within reach. Will continue to monitor closely and offer help.
[2017-12-13] MEDS: diphenhydrAMINE 50 MG CAPSULE PO PRN (23:38)
--- NOTE | 2017-12-14 | NUR ---
RE-ASSESSMENT BLANCA Pt. is sleeping, RR=16, unlabored and even . Safety measures in place : bed on lowest position with side rails x2 up for safety, call light within reach. Will continue to monitor closely and offer help.
--- NOTE | 2017-12-14 06:33 | NUR ---
END OF SHIFT NOTE : Patient is a 32-year-old female admitted on 12/11/17 for medically supervised withdrawal from opiate (heroin) and benzo (xanax), with concurrent use of crack cocaine and meth. Pt. placed on 5 day Ativan taper. NS IV drip at 125ml/h via PICC UA . Pt. is compliant with a TX plan, PRNs given during dry press operator helper : BENADRYL. CIWA, COWS taken when pt. was awake, last CIWA=10, COWS=10 at 04:00. Intake=1,434 , voided x3, slept=7 hours. Safety measures in place : bed on lowest position with side rails x2 up for safety, all light within reach. Will continue to monitor closely and offer help.
--- NOTE | 2017-12-14 07:40 | NUR ---
START OF SHIFT Received report from tray room worker nurse. Pt is lying in bed resting. She is a 32 yo male admitted to [facility] on 12/11 for opiate and BZD dependence. Allergic to bee venom, full code status, on a regular diet. On admission she reported using heroin 1 gram per day, xanax 6mg per day, crack cocaine, and meth. 5 day Ativan taper started 12/12 and 4 day subutex taper started 12/13. Pt is observed to be disheveled. She is uncooperative. She is refusing to wake up for a blood draw in the morning. Educated pt on the importance of obtaining labs. She continues to refuse. Her responses are short and she closes her eyes to go back to sleep. Safety measures in place.
[2017-12-14 08:00] VITALS: BP 100/59
[2017-12-14] MEDS ORDERED: BUPRENORPHINE HCL 2 MG TAB.SUBL SL SCH (09:00)
[2017-12-14 11:00] VITALS: BP 102/62
[2017-12-14] MEDS: GABAPENTIN 300 MG CAPSULE PO SCH ×3 (11:07→21:50)
[2017-12-14] MEDS: LORAZEPAM 1 MG TABLET PO SCH ×4 (11:07→21:50)
[2017-12-14] MEDS: MULTIVITAMINS,THERAPEUTIC TABLET PO SCH (11:07)
[2017-12-14] MEDS: LACTOBACILLUS RHAMNOSUS GG 1 EACH CAPSULE PO SCH ×2 (11:07→21:50)
[2017-12-14] MEDS ORDERED: SULFAMETH/TRIMETH 800/160 MG TABLET PO SCH (11:15)
[2017-12-14 13:30] VITALS: BP 128/74
--- NOTE | 2017-12-14 13:45 | NUR ---
Nursing Note Pt's HR is 135. Contacted Dr. Christopher with orders for STAT EKG. Addendum: 12/14/17 at 1835 by HECTOR HARRY RN Pt denies chest pain, dizziness, or SOB.
--- NOTE | 2017-12-14 14:35 | NUR ---
EKG Results EKG resulted. Dr. Christohper aware. No new orders.
[2017-12-14] MEDS: BUPRENORPHINE HCL 2 MG TAB.SUBL SL SCH ×2 (15:13→21:49)
[2017-12-14 16:30] VITALS: BP 106/52
[2017-12-14 17:56] LABS: CREATININE 1.1 mg/dL (0.6-1.3); MAGNESIUM 1.9 mg/dL (1.8-2.4); POTASSIUM 4.2 mmol/L (3.5-5.1)
--- NOTE | 2017-12-14 19:24 | NUR ---
END OF SHIFT Report provided to shift mechanic nurse. Pt is lying in bed resting. She is a 32 yo male admitted to [facility] on 12/11 for opiate and BZD dependence. Allergic to bee venom, full code status, on a regular diet. On admission she reported using heroin 1 gram per day, xanax 6mg per day, crack cocaine, and meth. 5 day Ativan taper started 12/12 and 4 day subutex taper started 12/13. PICC line to right upper arm is patent and intact. EKG performed for tachycardia and results provided to Dr. Christopher. IV Vancomycin discontinued in the morning and PO Bactrim ordered. MEDICAL AIDE ordered to Vancomycin to restart again tonight. IV fluids discontinued. Pt is uncooperative and tearful at times. She requires encouragement and reassurance. Pt is disheveled and did not shower today. She continues on Subutex and Ativan tapers. No PRN medications administered. Last COWS 8 and CIWA 7. Safety measures in place.
--- NOTE | 2017-12-14 19:30 | NUR ---
START OF SHIFT NOTE : Patient is a 32-year-old female admitted on 12/11/17 for medically supervised withdrawal from opiate (heroin) and benzo (xanax), with concurrent use of crack cocaine and meth. Pt. placed on 5 day Ativan taper. Pt. has PICC line at right UA for antibiotics. No PRNs given during day shift. Pt. is resting in the room, watching TV, restless and tearful time to time. CIWA=7, COWS=8 at 16:00. She complains of visible tremor time to time, insomnia, increased level of anxiety, flashes. Educated patient regarding the importance of compliance to treatment and medication regime, patient verbalized understanding. Encouraged patient to participate in all unit activities and socializing more with other clients. Safety measures in place : bed on lowest position with side rails x2 up for safety, all light within reach. Will continue to monitor closely and offer help.
[2017-12-14 20:00] VITALS: BP 90/50
[2017-12-14] MEDS ORDERED: VANCOMYCIN IV 200 ML IV ONE (20:00)
[2017-12-14] MEDS: diphenhydrAMINE 50 MG CAPSULE PO PRN (21:50)
[2017-12-14] MEDS: FAMOTIDINE 20 MG TABLET PO SCH (21:50)
--- NOTE | 2017-12-15 06:45 | NUR ---
END OF SHIFT NOTE : Patient is a 32-year-old female admitted on 12/11/17 for medically supervised withdrawal from opiate (heroin) and benzo (xanax), with concurrent use of crack cocaine and meth. Pt. placed on 5 day Ativan taper, tolerates well. PICC line is 100% functional, right UA . Pt. is partially compliant with a TX plan, is on room restriction . PRNs given during mini shifter : BENADRYL. CIWA, COWS taken when pt. was awake, last CIWA=8, COWS=8 at 04:00. Intake=1,091 , voided x3, slept=10 hours. Safety measures in place : bed on lowest position with side rails x2 up for safety, all light within reach. Will continue to monitor closely and offer help.
[2017-12-15 07:01] VITALS: BP 85/50
--- NOTE | 2017-12-15 07:22 | NUR ---
Start of shift note; Received report from night nurse. Patient is a 32 year old female admitted on 12/11/17 for Opiate/ Benzodiazepine/ Cocaine/ Methamphetamine withdrawals. Patient was placed on a 5 day Ativan taper and Subutex . Patient is AOX4 complaining of muscle aches, anxiety, hot and cold sweats. Patient was placed on ATB for abscess on left ankle. Patient completed IV treatment yesterday. Educated patient regarding the importance of compliance to treatment and medication regime. All safety measures secured. Will continue to monitor patient.
[2017-12-15 08:00] VITALS: BP 98/66
[2017-12-15] MEDS ORDERED: LORAZEPAM 1 MG TABLET PO SCH (09:00)
[2017-12-15] MEDS ORDERED: BUPRENORPHINE HCL 2 MG TAB.SUBL SL SCH (09:00)
[2017-12-15] MEDS ORDERED: SULFAMETH/TRIMETH 800/160 MG TABLET PO SCH (09:00)
[2017-12-15] MEDS: GABAPENTIN 300 MG CAPSULE PO SCH (09:28)
[2017-12-15] MEDS: LACTOBACILLUS RHAMNOSUS GG 1 EACH CAPSULE PO SCH (09:28)
[2017-12-15] MEDS: MULTIVITAMINS,THERAPEUTIC TABLET PO SCH (09:28)
[2017-12-15] MEDS: FAMOTIDINE 20 MG TABLET PO SCH (09:29)
--- NOTE | 2017-12-15 09:45 | NUR ---
Patient communication; Patient is AOX4. All due medications administered. Thorough mouth check done post administration. Witnessed patient take medication properly and Subutex dissolved. Patient is high risk for AMA, charge nurse notified and OFFICE ASSOCIATE boiler operators supervisor notified. Educated patient regarding unit protocols and policies, patient verbalized understanding. Patient was assisted by OFFICE ASSOCIATE to go to patio. OFFICE ASSOCIATE to closely monitor patient.
--- NOTE | 2017-12-15 12:45 | NUR ---
PICC line removal; Patient verbalized that she wants to AMA . Charge nurse was notified. PICC line removed by MEDICAL ASSISTING PROGRAM DIRECTOR. Patient tolerated procedure well. Pressure applied on site.
--- NOTE | 2017-12-15 13:00 | NUR ---
AMA note; Patient is AOX4. Patient verbalized that she wants to AMA. Educated patient regarding the risk and consequences of leaving AMA, verbalized understanding. Multidisciplinary staff including MD, case management, Nursing, LUNCH TRUCK DRIVER educated patient. Patient still decided to leave AMA. PICC/Midline was discontinued and removed by FIBERGLASS FABRICATOR. Patient denies S/I and H/I. All belongings and valuables returned to patient. Patient was escorted by LUNCH TRUCK DRIVER out of the hospital at exactly 1300 on 12/15/17.
[2017-12-16] MEDS ORDERED: LORAZEPAM 1 MG TABLET PO SCH (09:00)
[2017-12-16] MEDS ORDERED: BUPRENORPHINE HCL 2 MG TAB.SUBL SL SCH (09:00)
== END 2017-12-15 13:00 | disposition left against medical advice (07) | DRG 894 ==
LOC: SRC 19:17
PROVIDERS: ADMIT Internal Medicine; ATTEND Internal Medicine
DX: F11.23 Opioid dependence with withdrawal (principal); L03.115 Cellulitis of right lower limb; Z86.74 Personal history of sudden cardiac arrest; I47.1 Supraventricular tachycardia; L03.116 Cellulitis of left lower limb; F14.20 Cocaine dependence, uncomplicated; F12.10 Cannabis abuse, uncomplicated; F13.239 Sedative, hypnotic or anxiolytic dependence with withdrawal, unspecified; F17.210 Nicotine dependence, cigarettes, uncomplicated; Z91.89 Other specified personal risk factors, not elsewhere classified; Z59.0 Homelessness; F43.10 Post-traumatic stress disorder, unspecified; K29.70 Gastritis, unspecified, without bleeding; Z91.030 Bee allergy status; G47.00 Insomnia, unspecified; S91.03 Puncture wound without foreign body of ankle; L08.9 Local infection of the skin and subcutaneous tissue, unspecified; X78.8XXS Intentional self-harm by other sharp object, sequela; Z59.1 Inadequate housing; F15.10 Other stimulant abuse, uncomplicated; E86.0 Dehydration
CPT/HCPCS: 36415; 36569; 80307; 80324; 80353; 80361; 83690; 83735; 84443; 84703; 85025; 86580; 86592; 86705; 86803; 87340; 87806; 93005; A4217; A4663; G0480; J3370; J3490; J7030; J7040; Q0163